=== PATIENT | female | born 1940 | race Caucasian/White ===

== ENCOUNTER 2017-02-10 08:00 | Outpatient (CLI) | payer MEDICARE, OTHER | END 2017-02-10 08:01 | disposition home or self-care (01) | LOC: BICMAMMO 08:00 | PROVIDERS: ATTEND Internal Medicine | DX: Z12.31 Encounter for screening mammogram for malignant neoplasm of breast (principal); M81.0 Age-related osteoporosis without current pathological fracture; Z80.3 Family history of malignant neoplasm of breast | CPT/HCPCS: 77063; 77080 ==

== ENCOUNTER 2018-05-09 14:54 | Outpatient (CLI) | payer MEDICARE, OTHER ==
--- NOTE | 2018-05-10 15:00 | MMO ---
FILMS COMPARED: The present examination has been compared to prior imaging studies performed at [facility] on 10/07/2005, 10/12/2005 and 05/24/2006, at [facility] on 08/29/2009, and at [facility] on 03/28/2004. MAMMOGRAM FINDINGS: There are scattered fibroglandular densities. Finding 1: There are vascular calcifications seen in both breasts. Finding 2: There are benign appearing calcifications seen in both breasts. There are no suspicious masses, calcifications or areas of architectural distortion. IMPRESSION: ALL ABOVE FINDINGS ARE BENIGN. A ROUTINE FOLLOW-UP MAMMOGRAM IN 1 YEAR IS RECOMMENDED. ACR BI-RADS Category 2 - Benign finding
== END 2018-05-09 14:55 | disposition home or self-care (01) ==
LOC: BICMAMMO 14:54
PROVIDERS: ATTEND Internal Medicine
DX: Z12.31 Encounter for screening mammogram for malignant neoplasm of breast (principal); R92.1 Mammographic calcification found on diagnostic imaging of breast
CPT/HCPCS: 77063; 77067

== ENCOUNTER 2019-08-25 14:47 | Outpatient (CLI) | payer MEDICARE ==
--- NOTE | 2019-08-25 15:44 | MMO ---
Bilateral MAMMO Bilat Diag [facility]. CLINICAL HISTORY: Patient is 79 years old and is seen for diagnostic exam and lump or thickening in the right breast. The patient has no family history of breast cancer. The patient has no personal history of cancer. The patient has a history of right Cyst Aspiration in October, - benign. VIEWS: The views performed were: bilateral craniocaudal with tomosynthesis; bilateral mediolateral oblique with tomosynthesis; and bilateral mediolateral with tomosynthesis. FILMS COMPARED: The present examination has been compared to prior imaging studies performed at [facility] on 02/10/2017, 05/09/2018 and 08/25/2019. This study has been interpreted with the assistance of computer-aided detection. MAMMOGRAM FINDINGS: There are scattered fibroglandular densities. Benign calcifications are noted bilaterally. The palpable mass at 2:00 right breast is not seen on mammo but is suspicious on US and should be biopsied. In the left breast, there are no suspicious masses, calcifications or areas of architectural distortion. IMPRESSION: FINDING IN THE RIGHT BREAST IS SUSPICIOUS. AN ULTRASOUND-GUIDED BREAST BIOPSY IS RECOMMENDED. THE RESULTS OF THIS EXAM WERE SENT TO THE PATIENT. ACR BI-RADS Category 4 - Suspicious abnormality - biopsy should be considered MAMMOGRAPHY NOTE: 1. A negative mammogram report should not delay a biopsy if a dominant of clinically suspicious mass is present. 2. Approximately 10% to 15% of breast cancers are not detected by mammography. 3. Adenosis and dense breasts may obscure an underlying neoplasm. Reported by: LISS HERNANDEZ MD Electonically Signed: [id number]
--- NOTE | 2019-08-25 15:57 | ULT ---
RIGHT BREAST ULTRASOUND: HISTORY: An 79-year-old female who had a fall and trauma to the right breast in February of 2019 causing ecchy mosis which subsequently resolved. She feels a lump at the 2 o'clock position of the right breast fo r the past 2 weeks. FINDINGS: Correlation is made with the mammogram of the same date. Sonographic evaluation of the region of palpable concern at the 2 o'clock position of the right breas t, 12 cm from the nipple, demonstrates an irregular shadowing 1.6 x 1.1 x 0.7 cm mass. Evaluation of the right axilla demonstrates no abnormality. IMPRESSION: BIRADS category 4, suspicious abnormality. Ultrasound-guided biopsy is recommended. Discussed in person with the patient at 3:40 p.m. PERCY Parker
== END 2019-08-25 14:48 | disposition home or self-care (01) ==
LOC: BICMAMMO 14:47
PROVIDERS: ATTEND Internal Medicine
DX: N63.10 Unspecified lump in the right breast, unspecified quadrant (principal)
CPT/HCPCS: 76642; 77066; G0279

== ENCOUNTER → 2019-09-05 | Day surgery (SDC) | payer MEDICARE ==
--- NOTE | 2019-09-05 13:34 | ULT ---
ULTRASOUND GUIDED RIGHT BREAST MASS BIOPSY: INDICATION: Suspicious irregular hypoechoic mass in the right breast 2:00 position seen on diagnostic evaluation dated August 25, 2019. TECHNIQUE: Informed consent was obtained. The right] breast was prepped and draped in the usual sterile fashion. Buffered 1% lidocaine was administered to the overlying subcutaneous tissues. Under ultrasound guidance, a 13-gauge trocar needle was guided down to the lesion. Through the trocar needle and a 14- gauge core biopsy device was utilized to gain biopsy samples of the lesion. 5 separate core samples were obtained of the lesion. A biopsy clip was then deployed at the biopsy site. Pressure was held at the biopsy site until hemostasis was obtained. The site was then cleansed and bandage. The patient is to have a follow-up right breast mammogram to confirm clip deployment. The biopsy clip could not b e visualized on the mammogram due to the lesion being in the upper inner aspect of the right breast. This portion of the right breast could not be included within the [id number]. The clip was visualized to deploy by ultrasound. Patient tolerated procedure without difficulty. IMPRESSION: BI-RADS Category 4-suspicious abnormality. Recommend consideration for biopsy. Status post ultrasound-guided core biopsy of the suspicious right breast mass lesion in the 2:00 posi tion. Transcribed Date/Time: 09/05/2019 1:59 PM
--- NOTE | 2019-09-05 13:54 | MMO ---
FILMS COMPARED: The present examination has been compared to prior imaging studies performed at [facility] on 02/10/2017, 05/09/2018 and 08/25/2019. MAMMOGRAM FINDINGS: There are scattered fibroglandular densities. Mass and biopsy clip could not be included in the field of view of the post biopsy mammogram. The lesion is best seen on ultrasound. The clip did deploy in the mass on the ultrasound guided biopsy. In the left breast, there are no suspicious masses, calcifications or areas of architectural distortion. IMPRESSION: FINDING IN THE RIGHT BREAST IS SUSPICIOUS. BIOPSY IS RECOMMENDED. ACR BI-RADS Category 4 - Suspicious abnormality - biopsy should be considered Reported by: DOMINIQUE BEDOYA MD Electonically Signed: [id number]
== END ==
LOC: BICULT 11:47
PROVIDERS: ATTEND Internal Medicine
PROC: 0H9T3ZX Drainage of Right Breast, Percutaneous Approach, Diagnostic (ICD-10-PCS; principal; 2019-09-05)
DX: C50.211 Malignant neoplasm of upper-inner quadrant of right female breast (principal)
CPT/HCPCS: 19083; 88305; 88341; 88342

== ENCOUNTER 2019-09-18 05:00 | Outpatient (CLI) | payer MEDICARE, OTHER ==
--- NOTE | 2019-09-18 12:42 | RAD ---
CHEST 2 VIEWS: Date: 09/18/2019 HISTORY: Preoperative evaluation. FINDINGS: Heart size is within normal limits. No confluent pneumonia, overt edema, or pleural effusion. Minimal increased linear and interstitial markings bilaterally, evidence for nonspecific chronic change. IMPRESSION: Evidence for minimal nonspecific chronic change. No significant acute process. POS: RRE
[2019-09-18 14:44] LABS: #Eosinphils 0.2 thou/uL (0.0-0.7); #Lymphocytes 1.5 thou/uL (1.20-3.40); #Monocytes 0.6 thou/uL (0.11-0.59); %Basophils 0.5 % (0.0-1.0); %Eosinophils 2.8 % (0.0-10.0); %Lymphocytes 23.8 % (21.0-51.0); %Monocytes 9.5 % (0.0-10.0); %Neutrophils 63.4 % (42.0-75.0); Hemoglobin 14.8 g/dL (12.0-16.0); Mean Corpuscular HGB CONC 33.8 g/dL (32.0-36.0); Mean Corpuscular Hemoglobin 33.2 pg (27.0-31.0); Mean Corpuscular Volume 98.2 fL (78.0-98.0); Mean Platelet Volume 8.1 fL (7.4-10.4); Platelet Count 257 thou/uL (130-400); Red Blood Cell (RBC) Count 4.46 mill/uL (4.20-5.40); White Blood Cell (WBC) Count 6.4 thou/uL (4.8-10.8)
[2019-09-18 15:41] LABS: Anion Gap 13 mmol/L (10-20); BUN (Urea Nitrogen) 24 mg/dL (9.8-20.1); Calc. Creatinine Clearance 0 mL/min (70-130); Calcium 10.3 mg/dL (7.8-10.44); Carbon Dioxide 29 mmol/L (23-31); Chloride 99 mmol/L (98-107); Estimated GFR-MDRD 47; Glucose 290 mg/dL (83-110); Potassium 4.1 mmol/L (3.5-5.1); Sodium 137 mmol/L (136-145)
[2019-09-19 14:01] LABS: SARS-CoV-2 MS2 Positive; SARS-CoV-2 N Gene Negative; SARS-CoV-2 S Gene Negative; SARS-CoV-2 orf1ab Negative
== END 2019-09-18 05:01 | disposition home or self-care (01) ==
LOC: LABBT 05:00
PROVIDERS: ATTEND Specialist
DX: Z01.818 Encounter for other preprocedural examination (principal); Z11.59 Encounter for screening for other viral diseases; C50.911 Malignant neoplasm of unspecified site of right female breast; Z17.0 Estrogen receptor positive status [ER+]
CPT/HCPCS: 71046; 80048; 85025; 93005; U0003; 87635; 93010

== ENCOUNTER 2019-10-02 07:53 | Outpatient (CLI) | payer MEDICARE, OTHER ==
--- NOTE | 2019-10-02 14:07 | RAD ---
XR Chest Pa Lat STANDARD HISTORY: Preoperative evaluation COMPARISON: 09/18/2019 FINDINGS: The heart size is normal. The lungs are well expanded without focal areas of consolidation, pneumothorax or pleural effusions. There are degenerative changes in the spine. IMPRESSION: No radiographic evidence of acute cardiopulmonary process.
[2019-10-02 16:42] LABS: #Basophils 0.1 thou/uL (0.0-0.2); #Eosinphils 0.2 thou/uL (0.0-0.7); #Lymphocytes 2.9 thou/uL (1.20-3.40); #Neutrophils 8.4 thou/uL (1.40-6.50); %Basophils 0.6 % (0.0-1.0); %Eosinophils 1.7 % (0.0-10.0); %Lymphocytes 23.2 % (21.0-51.0); %Monocytes 7.6 % (0.0-10.0); Hemoglobin 14.7 g/dL (12.0-16.0); Mean Corpuscular HGB CONC 33.3 g/dL (32.0-36.0); Mean Corpuscular Hemoglobin 31.9 pg (27.0-31.0); Mean Corpuscular Volume 95.7 fL (78.0-98.0); Mean Platelet Volume 8.7 fL (7.4-10.4); Platelet Count 305 thou/uL (130-400); Red Blood Cell (RBC) Count 4.62 mill/uL (4.20-5.40); White Blood Cell (WBC) Count 12.6 thou/uL (4.8-10.8)
[2019-10-02 17:11] LABS: Anion Gap 13 mmol/L (10-20); BUN (Urea Nitrogen) 18 mg/dL (9.8-20.1); Calc. Creatinine Clearance 0 mL/min (70-130); Calcium 10.4 mg/dL (7.8-10.44); Carbon Dioxide 31 mmol/L (23-31); Chloride 99 mmol/L (98-107); Estimated GFR-MDRD 56; Glucose 165 mg/dL (83-110); Potassium 3.7 mmol/L (3.5-5.1); Sodium 139 mmol/L (136-145)
[2019-10-03 12:05] LABS: SARS-CoV-2 MS2 Positive; SARS-CoV-2 N Gene Negative; SARS-CoV-2 S Gene Negative; SARS-CoV-2 by NAA Not Detected (NotDetected); SARS-CoV-2 orf1ab Negative
== END 2019-10-02 07:54 | disposition home or self-care (01) ==
LOC: LABBT 07:53
PROVIDERS: ATTEND Specialist
DX: Z01.818 Encounter for other preprocedural examination (principal); Z11.59 Encounter for screening for other viral diseases; C50.911 Malignant neoplasm of unspecified site of right female breast; Z17.0 Estrogen receptor positive status [ER+]
CPT/HCPCS: 71046; 80048; 85025; 93005; U0003; 87635; 93010

== ENCOUNTER 2019-10-05 07:36 | Day surgery (SDC) | payer MEDICARE ==
[2019-09-28 14:00] VITALS: BMI 32.1
[2019-10-05] MEDS ORDERED: Lidocaine 1% w/Epinephrine 1:100K 20 ML VIAL ONE ×2 (09:18→13:28)
[2019-10-05] MEDS ORDERED: Isosulfan Blue 50 MG/5 ML VIAL ONE (09:18)
[2019-10-05] MEDS ORDERED: Bupivacaine 0.25% HCL 30 ML VIAL ONE ×2 (09:18→13:28)
[2019-10-05] MEDS ORDERED: Ketorolac Tromethamine 30 MG/ML VIAL ONE (09:21)
[2019-10-05] MEDS ORDERED: Acetaminophen 500 MG TAB ONE (09:22)
--- NOTE | 2019-10-05 09:24 | NM ---
Nuclear medicine lymphoscintigraphy right breast: 10/05/2019 HISTORY: 79-year-old female with malignant neoplasm of unspecified site of right female breast C 50.911 TECHNIQUE: Injection performed by special procedures technologist. Alcohol swabbing right periareolar distribution. 0.41 mCi Tc99m filtered sulfur colloid injected in periareolar distribution. Frontal and lateral immediate scintigraphy of chest. FINDINGS: There is uptake in the right axillary sentinel lymph node. IMPRESSION: Successful lymphoscintigraphy with demonstration of sentinel lymph node.
[2019-10-05] MEDS ORDERED: PROPOFOL 200 MG/20 ML VIAL ONE (09:44)
[2019-10-05] MEDS ORDERED: Ondansetron PF 4 MG/2 ML Vial ONE (09:44)
[2019-10-05] MEDS ORDERED: EPHEDRINE 25 MG/5 ML SYRINGE ONE (09:44)
[2019-10-05] MEDS ORDERED: Glycopyrrolate 0.2 MG/ML 5 ML SYRINGE ONE (09:44)
[2019-10-05] MEDS ORDERED: diphenhydrAMINE 50 MG/ML VIAL ONE (09:44)
[2019-10-05] MEDS ORDERED: Dexamethasone 20 MG/5 ML VIAL ONE (09:44)
[2019-10-05] MEDS ORDERED: PHENYLEPHRINE-NS 100 MCG/ML 10 ML SYRINGE ONE (09:44)
[2019-10-05] MEDS ORDERED: Fentanyl 100 MCG/2 ML VIAL ONE (10:06)
[2019-10-05] MEDS ORDERED: Levofloxacin 500 mg/D5W 100 ml Premix Bag ONE (10:26)
[2019-10-05] MEDS ORDERED: Dextrose 50% Abboject 50 ML SYRINGE ONE (10:31)
--- NOTE | 2019-10-05 13:58 | MMO ---
MAMMO Surgial Specimen History: Lumpectomy Comparison: Ultrasound September 05, 2019 and August 25, 2019 Findings: Single mammographic view of the right breast mass and specimen was obtained. There is a nee dle, clip and wire within the mass. Impression: Satisfactory specimen appearance.
--- NOTE | 2019-10-06 12:49 | OP ---
DATE OF PROCEDURE: 10/05/2019 PREOPERATIVE DIAGNOSIS: Right breast cancer. POSTOPERATIVE DIAGNOSIS: Right breast cancer. OPERATION PERFORMED: Ultrasound-guided right breast needle localization, right breast needle localized lumpectomy, right breast sentinel lymph node mapping, right axillary sentinel lymph node biopsy x3 nodes. ANESTHESIA: General endotracheal. INDICATIONS: Patient is an 79-year-old white female. She had noted a palpable mass in the upper inner right breast. 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 After discussing all options with her, she has elected to proceed with lumpectomy and sentinel lymph node biopsy understanding that she will possibly require postoperative radiation therapy. DESCRIPTION OF OPERATION: Informed consent was obtained. Patient was taken to the operating room, where general endotracheal anesthesia was obtained, patient supine position. She had undergone preoperative lymphoscintigraphy which showed right axillary sentinel lymph nodes. Her right breast was infiltrated with 3 mL of Lymphazurin in the periareolar subdermal tissue and massaged for 5 minutes. Attention was turned first to the axilla. Local anesthetic was infiltrated and a low axillary incision was created. Dissection was carried through skin and subcutaneous tissue. Within the axilla, Neoprobe was utilized to identify areas of maximum radio intensity. I was able to identify 3 separate sentinel lymph nodes, each of which had substantial radioactivity. The first two identified also had blue staining. Each lymph node was dissected circumferentially and all investing lymphatics were divided between clamps and 3-0 silk ties. After these were removed, there was no further significant radio activity noted within the axilla. The wound was closed in layers with 3-0 and 4-0 Monocryl. Additional local anesthetic was infiltrated during closure. Attention was turned to the right breast. The location of the malignancy in the upper inner quadrant of the right breast was mapped in a grid type fashion on the skin. Ultrasound was utilized to perform needle localization, passing the wire through the malignancy in a medial to lateral fashion. Local anesthetic was infiltrated using a mixture of 1% lidocaine with epinephrine and 0.25% Marcaine. A transverse incision was created over the lesion. Dissection was carried through skin and subcutaneous tissue. Flaps were raised superiorly and inferiorly. A wide core of tissue was then dissected around the localizing wire. Dissection was carried down to the pectoral fascia and the mass was removed intact with what appeared to be appropriately wide margins. The specimen was tagged with sutures for orientation and submitted for x-ray which demonstrated appropriate removal of the mass with localizing clip present within the lesion. Meticulous hemostasis was obtained. The wound was closed in layers with 3-0 and 4-0 Monocryl. Dermabond was placed externally on both incisions. There were no complications. Patient tolerated the procedure well and was taken to recovery room in stable condition. Job ID: [id number]
== END 2019-10-05 15:31 | disposition home or self-care (01) ==
LOC: SDC 07:36
PROVIDERS: ATTEND Specialist
PROC: 0HBT0ZZ Excision of Right Breast, Open Approach (ICD-10-PCS; principal; 2019-10-05)
PROC: 07B50ZX Excision of Right Axillary Lymphatic, Open Approach, Diagnostic (ICD-10-PCS; 2019-10-05)
DX: C50.211 Malignant neoplasm of upper-inner quadrant of right female breast (principal); F32.9 Major depressive disorder, single episode, unspecified; E11.9 Type 2 diabetes mellitus without complications; E03.9 Hypothyroidism, unspecified; Z17.0 Estrogen receptor positive status [ER+]; Z79.4 Long term (current) use of insulin; Z79.82 Long term (current) use of aspirin; Z79.899 Other long term (current) drug therapy; Z88.0 Allergy status to penicillin
CPT/HCPCS: 19301; 38525; 38900; 76098; 78195; 82962; A9541; Q9968; 36416; 88307; 88341; 88342; J0690; J1100; J1200; J1885; J1956; J2405; J2704; J3010; S0020